=== PATIENT | male | born 1950 | race African-American/Black ===

== ENCOUNTER 2018-05-04 22:39 | Emergency (ER) | payer OTHER ==
[~2018-05-04] VITALS: Ht 180.3 cm; Wt 97.5 kg
--- NOTE | ~2018-05-04 | EKG ---
[address] [place] [address] ELECTROCARDIOGRAM REPORT Name: HELEN BRUCE Room #: [facility]P [facility]YS[facility]arenKaren#: [id number] Admission: 05/04/18 Attend Phys: Discharge: 05/05/18 Date of : 52 Report #: [id number] THIS REPORT FOR: //name// [facility] ED Test Date: 2018-05-04 Test Time: 23:22:18 Pat Name: HELEN BRUCE Department: Room: Gender: [employer] Ordnance[employer]: Tete : 1950 Requested By: Nancy Almodovar Order Number: [id number] MD: Ambrocio Cabrera Measurements Intervals [place] Rate: 99 P: 49 [place]: 157 QRS: -20 QRSD: 101 T: 35 QT: 360 QTc: 462 Interpretive Statements Sinus rhythm Probable left atrial enlargement Borderline left axis deviation Nonspecific T-wave abnormalities No previous ECG available for comparison 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
[2018-05-04 23:19] LABS: URINE BILIRUBIN NEGATIVE (Negative); URINE BLOOD 3+ (Negative); URINE CLARITY CLEAR; URINE COLOR YELLOW; URINE GLUCOSE-RANDOM* 3+ (Negative); URINE KETONES TRACE (Negative); URINE LEUKOCYTES-REFLEX NEGATIVE (Negative); URINE NITRITE-REFLEX NEGATIVE (Negative); URINE PROTEIN (DIPSTICK) NEGATIVE (Negative); URINE UROBILINOGEN 0.2 E.U./dl (0.2-1.0)
[2018-05-04 23:34] LABS: CASTS None Seen /LPF (None Seen); CRYSTALS None Seen /LPF (None Seen); MUCUS None Seen strn/LPF (None Seen); SQUAMOUS 0-3 Few /LPF (0-3); URINE WBC-REFLEX None Seen /HPF (0-5)
[2018-05-04 23:35] LABS: BACTERIA-REFLEX None Seen /HPF (None Seen); URINE RBC >20 Many /HPF (0-2)
[2018-05-04 23:59] LABS: HEMATOCRIT 42.3 % (42.0-52.0); HEMOGLOBIN 14.6 gm/dL (14.0-18.0); MCHC 34.5 g/dL (28.0-37.0); MCV 89.7 fL (80.0-100.0); RBC 4.71 mil/uL (4.50-6.00); RDW 13.2 % (10.5-14.5); WBC 12.5 thou/uL (4.0-11.0)
[2018-05-05 00:08] LABS: ANION GAP 9 mmol/L (7-16); BUN 15 mg/dL (7-18); CALCIUM 9.2 mg/dL (8.5-10.1); CHLORIDE 96 mmol/L (98-107); CO2 28 mmol/L (21-32); CREATININE 1.5 mg/dL (0.7-1.3); GLUCOSE 396 mg/dL (74-106); POTASSIUM 4.8 mmol/L (3.5-5.1); SODIUM 133 mmol/L (136-145)
[2018-05-05 00:17] LABS: ALBUMIN 3.8 g/dL (3.4-5.0); LIPASE 75 U/L (73-393); SGOT 38 U/L (15-37); SGPT 53 U/L (30-65); TOTAL BILIRUBIN 0.7 mg/dL (<0.1-1.0); TOTAL PROTEIN 7.5 g/dL (6.4-8.2); TROPONIN-I <0.06 ng/mL (<0.06)
[2018-05-05] MEDS ORDERED: NORCO 5-325 TA1 EACH PO (03:41)
[2018-05-05] MEDS ORDERED: TORADOL 10 MG T10 MG PO (03:41)
[2018-05-05 04:09] VITALS: BP 102/57
== END 2018-05-05 04:10 | disposition home or self-care (01) ==
LOC: EDSEX 22:39 → ER 22:39
PROVIDERS: Student in an Organized Health Care Education/Training Program
DX: N20.0 Calculus of kidney (principal); I10 Essential (primary) hypertension; E11.9 Type 2 diabetes mellitus without complications; Z90.49 Acquired absence of other specified parts of digestive tract